=== PATIENT | female | born 1970 | race Caucasian/White ===

== ENCOUNTER 2018-05-11 14:52 | Inpatient (IN) | payer MEDICARE ==
[~2018-05-11] VITALS: Ht 160 cm; Wt 63.6 kg
[2018-05-11] VITALS (7 sets, daily range): BP systolic 130–156; BP diastolic 84–90; BMI 24.8
--- NOTE | ~2018-05-11 | OP ---
PATIENT NAME: HARMAN ALMONTE MEDICAL RECORD: [id number] :74 LOCATION:D.[facility] ADMISSION DATE:05/11/18 SURGEON: JELENA HYATT MD DATE OF OPERATION: 05/11/2018 PREOPERATIVE DIAGNOSES: 1. Pneumoperitoneum. 2. Diffuse peritonitis. POSTOPERATIVE DIAGNOSES: 1. Pneumoperitoneum. 2. Diffuse peritonitis secondary to gangrenous perforated appendix. 3. Ileus. PROCEDURE: 1. Laparoscopic appendectomy. 2. Abdominal lavage with placement of drain. SURGEON: Jelena Hyatt MD WOOD FINISHER APPRENTICE: None. BLOOD LOSS: Minimal. ANESTHESIA: General. COMPLICATIONS: None. The findings were quite striking. Although she has only had symptoms for about 3 days, she arrived and had a pneumoperitoneum, which is quite unusual even with a perforated appendicitis. I thought that she most likely had a perforated colonic diverticulum. The findings at the time of laparoscopy were that of lot of purulence and present of mainly within the pelvis and lower abdomen, but even some of the upper abdomen. Diffuse peritonitis was present. There were abscesses between the leaves of the mesentery and we released all these bluntly. I looked around for source of infection. There was no bile staining and no feculent smell to the fluid. It appears that this was all due to gangrenous appendicitis. The appendix was identified and was gangrenous and was perforated. OPERATIVE COURSE: The patient was conveyed to the operating room electively on 05/11/2018. General anesthesia was induced by the anesthesia staff. The abdomen was sterilely prepped and draped. A small skin incision was accomplished in the left upper quadrant. A Veress needle was inserted through the skin incision into the peritoneal cavity. CO2 insufflation was begun. Once a sufficient pneumoperitoneum had been achieved, a 5 mm trocar was inserted through an incision in the left lower quadrant. Another, 5 mm trocar was inserted through an incision in the epigastrium. A 12 mm trocar was inserted through an incision at the umbilicus. During insertion of the Veress needle and all trocars, there appeared to have been no injury to the bowels, any intraperitoneal or retroperitoneal structures. Abdominal survey was undertaken. Utilizing 2 endoscopic Kittners, I began to separate the portions of the small bowel and exploring the abscesses between the leaves of the mesentery. I did this. I also elevated the uterus and then OPERATIVE REPORT [id number] HARMAN ALMONTE released an abscess cavity down the cul-de-sac. I irrigated and aspirated. Cultures were obtained. Findings are as listed above. I identified the appendix. A window was created in the mesoappendix. I stapled across the tip of the cecum with an Endo-UBALDO type stapler utilizing a blue load. I then took down the mesentery to the appendix with the laparoscopic EnSeal device. The appendix was placed within a bag retrieval device. It was withdrawn out through the umbilical fascial defect. A 12-mm trocar was placed and the abdomen reinsufflated. I irrigated and aspirated in all quadrants. Two drains were placed. These were placed at the trocar sites. All trocars were removed and the abdomen desufflated. The drain was sutured to skin with 4-0 nylons. The skin at the umbilicus was closed with interrupted 3-0 Vicryl Rapide sutures. The other skin incision was closed with a single interrupted intracuticular 3-0 Vicryl. Benzoin and Steri-Strips were applied. The patient was then extubated and conveyed to post-anesthesia care unit where she was in stable condition. I anticipate that she will require intravenous antibiotics in the hospital for several days as she is going to be at very high risk for postoperative complications. She already appears to have an ileus. Additionally, she is going to be high risk for postoperative abscess formations. TRANSINT:[id number] Voice Confirmation ID: [id number] DOCUMENT ID: [id number] JELENA HYATT MD at 1603 CC: REBECCA PEARSON MD [id number] DICTATION DATE: 05/11/182230 TUBE BENDER HAND: 05/11/182303 DIS IN 05/18/18 [facility] [address] [place] [address]
--- NOTE | ~2018-05-11 | MORECARE ---
CASE MANAGEMENT DISCHARGE SUMMARY PATIENT: HARMAN ALMONTE UNIT: [id number] ADM DATE: 05/11/18 AGE: 47 : 74 SEX: F ROOM/BED: D.2204 AUTHOR: KYLEDOC PHYSICIAN: REFERRING PHYSICIAN: JELENA HYATT MD DATE OF SERVICE: 05/18/18 Discharge Plan Patient Name: HARMAN ALMONTE Facility: [facility]:[place] : 1970 Planned Disposition: Home Anticipated Discharge Date: Discharge Date: Expected LOS: Initial Reviewer: [email or web address] Initial Review Date: 05/11/2018 Generated: 05/18/18 11:24 am Comments DCP- Discharge Planning Updated by [email or web address]: Yocasta Gunn on 05/18/18 9:[address] Patient Name: HARMAN ALMONTE Encounter No: [id number] : 1970 Primary Insurance: [employer] Anticipated DC Date: Planned Disposition: Home External Planned Provider: : DCP follow-up note: Patient and family in agreement with discharge plan. Patient will be discharging home today. Her mom is at bedside. Denies any needs at this time. Case management will follow and assist as needed. Yocasta Gunn DCP- Discharge Planning Updated by [email or web address]: Yocasta Gunn on 05/12/18 4:[address] Patient Name: HARMAN ALMONTE Admission Status: ER Accout number: [id number] Admission Date: 05-11-2018 : 1970 Admission Diagnosis:ACUTE APPENDICITIS WITH PERF AND LOC PERITONITIS, WITH Attending: JELENA HYATT Current LOS: 1 Anticipated DC Date: Planned Disposition: Home Primary Insurance: [employer] Discharge Planning Comments: CM met with patient to assess discharge planning needs. Patient lives independently at home where she plans to return at DC. Her mother lives with her and she stated that a friend will be the one to drive her home. She denies any need or use of DME or community resources & does not think that she will need it at DC. Her home is safe to return. CM will continue to follow and assist with DC planning Modeling Agency Manager: Yocasta Gunn DCPIA - Discharge Planning Initial Assessment Updated by [email or web address]: Yocasta Gunn on 05/12/18 4:04 pm * Is the patient Alert and Oriented? Yes * How many steps to enter\exit or inside your home? 10 * PCP REBECCA PEARSON IN [facility] * Pharmacy [facility] IN [facility] * Preadmission Environment Home with Family * ADLs Independent * Equipment None * Verbal permission to speak to the caregivers and representatives has been obtained from the patient. N/A * Community resources currently utilized None * Additional services required to return to the preadmission environment? No * Can the patient safely return to the preadmission environment? Yes * Has this patient been hospitalized within the prior 30 days at any hospital? No Last DP export: 05/12/18 4:17 p Patient Name: HARMAN ALMONTE Page 50958 at 1024 All edits/amendments must be made on the electronic document DICTATION DATE: 05/18/18 1023 CABLE CUTTER AND SWAGER: OSKAR 05/18/18 1023 RPT#: [id number] DC DATE: STATUS: ADM IN [facility] [address] [place] [address] END OF REPORT
--- NOTE | ~2018-05-11 | MORECARE ---
CASE MANAGEMENT DISCHARGE SUMMARY PATIENT: HARMAN ALMONTE UNIT: [id number] ADM DATE: 05/11/18 AGE: 47 : 74 SEX: F ROOM/BED: D.2204 AUTHOR: KYLE,DOC PHYSICIAN: REFERRING PHYSICIAN: JELENA HYATT MD DATE OF SERVICE: 05/12/18 Discharge Plan Patient Name: HARMAN ALMONTE Facility: [facility]:[place] : 1970 Planned Disposition: Home Anticipated Discharge Date: Discharge Date: Expected LOS: Initial Reviewer: [email or web address] Initial Review Date: 05/11/2018 Generated: 05/12/18 5:16 pm Comments DCP- Discharge Planning Updated by [email or web address]: Yocasta Gunn on 05/12/18 3:[address] Patient Name: HARMAN ALMONTE Admission Status: ER Accout number: [id number] Admission Date: 05-11-2018 : 1970 Admission Diagnosis:ACUTE APPENDICITIS WITH PERF AND LOC PERITONITIS, WITH Attending: JELENA HYATT Current LOS: 1 Anticipated DC Date: Planned Disposition: Home Primary Insurance: [employer] Discharge Planning Comments: CM met with patient to assess discharge planning needs. Patient lives independently at home where she plans to return at DC. Her mother lives with her and she stated that a friend will be the one to drive her home. She denies any need or use of DME or community resources & does not think that she will need it at DC. Her home is safe to return. CM will continue to follow and assist with DC planning Plc Programmer: Yocasta Gunn DCPIA - Discharge Planning Initial Assessment Updated by [email or web address]: Yocasta Gunn on 05/12/18 4:04 pm * Is the patient Alert and Oriented? Yes * How many steps to enter\exit or inside your home? 10 * PCP REBECCA PEARSON IN [facility] * Pharmacy [facility] IN [facility] * Preadmission Environment Home with Family * ADLs Independent * Equipment None * Verbal permission to speak to the caregivers and representatives has been obtained from the patient. N/A * Community resources currently utilized None * Additional services required to return to the preadmission environment? No * Can the patient safely return to the preadmission environment? Yes * Has this patient been hospitalized within the prior 30 days at any hospital? No Last DP export: 05/12/18 3:07 p Patient Name: HARMAN ALMONTE Page [id number] at 1617 All edits/amendments must be made on the electronic document DICTATION DATE: 05/12/181615 RECORDS MANAGEMENT SPECIALIST: OSAKR 05/12/181615 RPT#: [id number] DC DATE: STATUS: ADM IN [facility] [address] [place] [address] END OF REPORT
--- NOTE | ~2018-05-11 | MORECARE ---
CASE MANAGEMENT DISCHARGE SUMMARY PATIENT: HARMAN ALMONTE UNIT: [id number] ADM DATE: 05/11/18 AGE: 47 : 74 SEX: F ROOM/BED: D.2204 AUTHOR: JEANIE WRIGHT PHYSICIAN: REFERRING PHYSICIAN: JELENA HYATT MD DATE OF SERVICE: 05/12/18 Discharge Plan Patient Name: HARMAN ALMONTE Facility: [facility]:[place] : 1970 Planned Disposition: Home Anticipated Discharge Date: Discharge Date: Expected LOS: Initial Reviewer: [email or web address] Initial Review Date: 05/11/2018 Generated: 05/12/18 5:06 pm DCPIA - Discharge Planning Initial Assessment Updated by [email or web address]: Yocasta Gunn on 05/12/18 4:04 pm * Is the patient Alert and Oriented? Yes * How many steps to enter\exit or inside your home? 10 * PCP REBECCA PEARSON IN [facility] * Pharmacy [facility] IN [facility] * Preadmission Environment Home with Family * ADLs Independent * Equipment None * Verbal permission to speak to the caregivers and representatives has been obtained from the patient. N/A * Community resources currently utilized None * Additional services required to return to the preadmission environment? No * Can the patient safely return to the preadmission environment? Yes * Has this patient been hospitalized within the prior 30 days at any hospital? No Patient Name: HARMAN ALMONTE Page 44045 at 1607 All edits/amendments must be made on the electronic document DICTATION DATE: 05/12/18 160 TENNIS INSTRUCTOR: OSKAR 05/12/18 1606 RPT#: [id number] DC DATE: STATUS: ADM IN [facility] [address] [place] [address] END OF REPORT
--- NOTE | ~2018-05-11 | MORECARE ---
CASE MANAGEMENT DISCHARGE SUMMARY PATIENT: HARMAN ALMONTE UNIT: [id number] ADM DATE: 05/11/18 AGE: 47 : 74 SEX: F ROOM/BED: D.2204 AUTHOR: JEANIE WRIGHT PHYSICIAN: REFERRING PHYSICIAN: JELENA HYATT MD DATE OF SERVICE: 05/23/18 Discharge Plan Patient Name: HARMAN ALMONTE Facility: [facility]:[place] : 1970 Planned Disposition: Home Anticipated Discharge Date: Discharge Date: 05/18/2018 Expected LOS: 0 Initial Reviewer: [email or web address] Initial Review Date: 05/11/2018 Generated: 05/23/18 10:20 am Comments DCP- Discharge Planning Updated by [email or web address]: Yocasta Gunn on 05/18/18 9:[address] Patient Name: HARMAN ALMONTE Encounter No: [id number] : 1970 Primary Insurance: [employer] Anticipated DC Date: Planned Disposition: Home External Planned Provider: : DCP follow-up note: Patient and family in agreement with discharge plan. Patient will be discharging home today. Her mom is at bedside. Denies any needs at this time. Case management will follow and assist as needed. Yocasta Gunn DCP- Discharge Planning Updated by [email or web address]: Yocasta Gunn on 05/12/18 4:[address] Patient Name: HARMAN ALMONTE Admission Status: ER Accout number: [id number] Admission Date: 05-11-2018 : 1970 Admission Diagnosis:ACUTE APPENDICITIS WITH PERF AND LOC PERITONITIS, WITH Attending: JELENA HYATT Current LOS: 1 Anticipated DC Date: Planned Disposition: Home Primary Insurance: [employer] Discharge Planning Comments: CM met with patient to assess discharge planning needs. Patient lives independently at home where she plans to return at DC. Her mother lives with her and she stated that a friend will be the one to drive her home. She denies any need or use of DME or community resources & does not think that she will need it at DC. Her home is safe to return. CM will continue to follow and assist with DC planning Group Contract Analyst: Yocasta Gunn DCPIA - Discharge Planning Initial Assessment Updated by [email or web address]: Yocasta Gunn on 05/12/18 4:04 pm * Is the patient Alert and Oriented? Yes * How many steps to enter\exit or inside your home? 10 * PCP REBECCA PEARSON IN [facility] * Pharmacy [facility] IN [facility] * Preadmission Environment Home with Family * ADLs Independent * Equipment None * Verbal permission to speak to the caregivers and representatives has been obtained from the patient. N/A * Community resources currently utilized None * Additional services required to return to the preadmission environment? No * Can the patient safely return to the preadmission environment? Yes * Has this patient been hospitalized within the prior 30 days at any hospital? No Last DP export: 05/18/18 9:24 a Patient Name: HARMAN ALMONTE Page 06911 at 0920 All edits/amendments must be made on the electronic document DICTATION DATE: 05/23/18919 MUSEUM EXHIBIT DESIGNER: OSKAR 05/23/18919 RPT#: [id number] DC DATE:05/18/18 STATUS: DIS IN [facility] [address] [place] [address] END OF REPORT
[2018-05-11 20:31] LABS: HCG URINE NEGATIVE (NEGATIVE)
[2018-05-12 04:58] VITALS: BP 140/79
[2018-05-12 05:58] LABS: BASOPHILS 0 % (0-2); EOSINOPHILS 0 % (0-7); HEMATOCRIT 30.6 % (36.0-48.0); HEMOGLOBIN 10.3 g/dL (12-16); IMMATURE GRANULOCYTES 0.1 % (0-5); LYMPHOCYTES 4.2 % (15-50); MCH 28.9 pg (26.0-34.0); MCHC 33.7 g/dL (31.0-37.0); MCV 85.7 fL (80.0-100.0); MEAN PLATELET VOLUME 8.9 fL (7.4-10.4); MONOCYTES 4.6 % (2-11); NEUTROPHILS 91.1 % (40-80); PLATELET COUNT 278 10x3/uL (130-400); RBC 3.57 10x6/uL (4.00-5.40); RDW 14.6 % (11.5-14.5); WBC 9.4 10x3/uL (4.8-10.8)
[2018-05-12 06:39] LABS: ALBUMIN 2.3 g/dL (3.4-5.0); ALKALINE PHOSPHATASE 52 U/L (46-116); ALT (SGPT) 7 U/L (10-68); BILIRUBIN - TOTAL 0.38 mg/dL (0.2-1.3); CALCIUM 8.3 mg/dL (8.5-10.1); CARBON DIOXIDE 22.8 mmol/L (21.0-32.0); CREATININE - SERUM 0.8 mg/dL (0.6-1.3); GLUCOSE 132 mg/dL (74-106); MAGNESIUM - SERUM 2.2 mg/dL (1.8-2.4); PHOSPHOROUS 2.1 mg/dL (2.5-4.9); PROTEIN - SERUM 6.7 g/dL (6.4-8.2); UREA NITROGEN 15 mg/dL (7-18); eGFR NON AFRICAN AMERICAN 82 mL/min (90-120)
[2018-05-12 06:47] LABS: CALC OSMOLALITY 272 mosm/kg (275-300); CHLORIDE - SERUM 104 mmol/L (98-107); POTASSIUM - SERUM 4.2 mmol/L (3.5-5.1); SODIUM 135 mmol/L (136-145)
[2018-05-12 11:00] VITALS: BP 147/83
[2018-05-12 16:33] VITALS: BP 174/92
[2018-05-12 21:26] VITALS: BP 159/89
[2018-05-13 05:11] VITALS: BP 139/86
[2018-05-13 06:24] LABS: BASOPHILS 0.1 % (0-2); EOSINOPHILS 0.1 % (0-7); HEMATOCRIT 28.2 % (36.0-48.0); HEMOGLOBIN 9.5 g/dL (12-16); IMMATURE GRANULOCYTES 0.2 % (0-5); LYMPHOCYTES 11.6 % (15-50); MCHC 33.7 g/dL (31.0-37.0); MEAN PLATELET VOLUME 9.6 fL (7.4-10.4); MONOCYTES 11.3 % (2-11); NEUTROPHILS 76.7 % (40-80); PLATELET COUNT 313 10x3/uL (130-400); RBC 3.28 10x6/uL (4.00-5.40); RDW 14.7 % (11.5-14.5); WBC 8.9 10x3/uL (4.8-10.8)
[2018-05-13 06:27] LABS: CALC OSMOLALITY 286 mosm/kg (275-300); CALCIUM 8.1 mg/dL (8.5-10.1); CARBON DIOXIDE 25.5 mmol/L (21.0-32.0); CHLORIDE - SERUM 109 mmol/L (98-107); CREATININE - SERUM 0.6 mg/dL (0.6-1.3); GLUCOSE 113 mg/dL (74-106); POTASSIUM - SERUM 4.5 mmol/L (3.5-5.1); SODIUM 142 mmol/L (136-145); eGFR NON AFRICAN AMERICAN > 90 mL/min (90-120)
[2018-05-13 06:29] LABS: UREA NITROGEN 21 mg/dL (7-18)
[2018-05-13 08:23] VITALS: BP 159/87
[2018-05-13 12:00] VITALS: BP 154/88
[2018-05-13 16:23] VITALS: BP 155/93
[2018-05-13 21:18] VITALS: BP 161/80
[2018-05-14 04:29] VITALS: BP 146/82
[2018-05-14 09:17] VITALS: BP 154/74
[2018-05-14 12:43] VITALS: BP 170/90
[2018-05-14 17:00] VITALS: BP 167/98
[2018-05-14 20:43] VITALS: BP 156/98
[2018-05-15 00:44] VITALS: BP 148/78
[2018-05-15 04:00] VITALS: BP 141/85
[2018-05-15 08:17] VITALS: BP 148/88
[2018-05-15 11:56] VITALS: BP 152/86
[2018-05-15 16:07] VITALS: BP 152/86
[2018-05-15 20:00] VITALS: BP 163/87
[2018-05-16 01:00] VITALS: BP 145/93
[2018-05-16 05:24] VITALS: BP 154/84
[2018-05-16 06:40] LABS: BASOPHILS 0.2 % (0-2); EOSINOPHILS 1.5 % (0-7); HEMATOCRIT 34.2 % (36.0-48.0); HEMOGLOBIN 11.3 g/dL (12-16); IMMATURE GRANULOCYTES 1.2 % (0-5); LYMPHOCYTES 14.2 % (15-50); MCH 28.1 pg (26.0-34.0); MCV 85.1 fL (80.0-100.0); MEAN PLATELET VOLUME 8.6 fL (7.4-10.4); MONOCYTES 10.9 % (2-11); RBC 4.02 10x6/uL (4.00-5.40); RDW 14.3 % (11.5-14.5); WBC 15.5 10x3/uL (4.8-10.8)
[2018-05-16 06:42] LABS: PLATELET COUNT 426 10x3/uL (130-400)
[2018-05-16 06:52] LABS: CALC OSMOLALITY 271 mosm/kg (275-300); CALCIUM 8.3 mg/dL (8.5-10.1); CARBON DIOXIDE 25.7 mmol/L (21.0-32.0); CHLORIDE - SERUM 104 mmol/L (98-107); CREATININE - SERUM 0.7 mg/dL (0.6-1.3); GLUCOSE 105 mg/dL (74-106); MAGNESIUM - SERUM 2.2 mg/dL (1.8-2.4); SODIUM 137 mmol/L (136-145); UREA NITROGEN 6 mg/dL (7-18); eGFR NON AFRICAN AMERICAN > 90 mL/min (90-120)
[2018-05-16 08:12] VITALS: BP 146/88
[2018-05-16 13:04] VITALS: BP 156/95
[2018-05-16 16:33] VITALS: BP 154/94
[2018-05-16 20:00] VITALS: BP 170/89
[2018-05-17] VITALS: BP 125/71
[2018-05-17 04:00] VITALS: BP 140/86
[2018-05-17 08:30] VITALS: BP 147/90
[2018-05-17 12:45] VITALS: BP 159/87
[2018-05-17 15:42] LABS: CALCIUM 8.5 mg/dL (8.5-10.1); CARBON DIOXIDE 27.1 mmol/L (21.0-32.0); CHLORIDE - SERUM 105 mmol/L (98-107); CREATININE - SERUM 0.7 mg/dL (0.6-1.3); GLUCOSE 115 mg/dL (74-106); SODIUM 138 mmol/L (136-145); eGFR NON AFRICAN AMERICAN > 90 mL/min (90-120)
[2018-05-17 15:43] LABS: CALC OSMOLALITY 273 mosm/kg (275-300); POTASSIUM - SERUM 3.3 mmol/L (3.5-5.1); UREA NITROGEN 4 mg/dL (7-18)
[2018-05-17 16:16] LABS: BASOPHILS 0.2 % (0-2); EOSINOPHILS 2.2 % (0-7); HEMATOCRIT 31.1 % (36.0-48.0); HEMOGLOBIN 10.4 g/dL (12-16); IMMATURE GRANULOCYTES 1.1 % (0-5); LYMPHOCYTES 17.1 % (15-50); MCH 28.3 pg (26.0-34.0); MCHC 33.4 g/dL (31.0-37.0); MCV 84.7 fL (80.0-100.0); MEAN PLATELET VOLUME 8.5 fL (7.4-10.4); MONOCYTES 11.1 % (2-11); NEUTROPHILS 68.3 % (40-80); PLATELET COUNT 412 10x3/uL (130-400); RBC 3.67 10x6/uL (4.00-5.40); RDW 14.4 % (11.5-14.5); WBC 12.7 10x3/uL (4.8-10.8)
[2018-05-17 16:22] VITALS: BP 155/78
[2018-05-17 20:35] VITALS: Ht 160 cm; Wt 63.6 kg
[2018-05-17 20:41] VITALS: BP 141/86
[2018-05-18 04:52] VITALS: BP 140/87
[2018-05-18 05:36] LABS: BASOPHILS 0.2 % (0-2); EOSINOPHILS 2.1 % (0-7); HEMATOCRIT 30.6 % (36.0-48.0); HEMOGLOBIN 10.1 g/dL (12-16); IMMATURE GRANULOCYTES 1.1 % (0-5); LYMPHOCYTES 17.3 % (15-50); MCH 28.3 pg (26.0-34.0); MCV 85.7 fL (80.0-100.0); MEAN PLATELET VOLUME 8.5 fL (7.4-10.4); MONOCYTES 8.9 % (2-11); NEUTROPHILS 70.4 % (40-80); PLATELET COUNT 422 10x3/uL (130-400); RBC 3.57 10x6/uL (4.00-5.40); RDW 14.7 % (11.5-14.5); WBC 12.2 10x3/uL (4.8-10.8)
[2018-05-18 05:52] LABS: CALC OSMOLALITY 274 mosm/kg (275-300); CALCIUM 8.1 mg/dL (8.5-10.1); CARBON DIOXIDE 29.3 mmol/L (21.0-32.0); CHLORIDE - SERUM 104 mmol/L (98-107); CREATININE - SERUM 0.7 mg/dL (0.6-1.3); GLUCOSE 102 mg/dL (74-106); POTASSIUM - SERUM 3.7 mmol/L (3.5-5.1); SODIUM 139 mmol/L (136-145); UREA NITROGEN 4 mg/dL (7-18); eGFR NON AFRICAN AMERICAN > 90 mL/min (90-120)
[2018-05-18 09:06] VITALS: BP 145/86
[2018-05-18] MEDS ORDERED: AUGMENTIN 875-11 TAB PO (09:57)
[2018-05-18] MEDS ORDERED: HYDROCODON-ACE1 EAC7 PO (09:58)
[2018-05-18 13:14] VITALS: BP 139/91
[2018-05-20 19:10] LABS: AEROBE ID Final report (())
== END 2018-05-18 15:18 | disposition home or self-care (01) | DRG 339 ==
LOC: D.ER 14:52 → D.EDHOLD 15:18 → D.MS 15:18
PROVIDERS: Student in an Organized Health Care Education/Training Program; Surgery
PROC: 0DTJ4ZZ Resection of Appendix, Percutaneous Endoscopic Approach (ICD-10-PCS; principal; 2018-05-11 19:45)
DX: K35.33 Acute appendicitis with perforation, localized peritonitis, and gangrene, with abscess (principal); K56.7 Ileus, unspecified; K66.8 Other specified disorders of peritoneum; B96.20 Unspecified Escherichia coli [E. coli] as the cause of diseases classified elsewhere